=== PATIENT | female | born 1975 | race Caucasian/White ===

== ENCOUNTER 2021-05-19 11:38 | Day surgery (SDC) | payer MEDICAID ==
[2021-05-17 13:40] LABS: COVID AG,FIA SOURCE NASOPHARYNGEAL
[~2021-05-19] VITALS: Ht 158.8 cm; Wt 70.4 kg
[~2021-05-19 11:38] MED LIST: SODIUM CHLORIDE 0.9% 1,000 ML IV ONE; SODIUM CHLORIDE 0.9% 1,000 ML ONE
[2021-05-19] MEDS ORDERED: PROPOFOL 1% 20 ML VIAL IVP ONE (11:39)
[2021-05-19] MEDS ORDERED: LIDOCAINE/PF 2% 5 ML VIAL IM ONE (11:39)
== END 2021-05-19 15:55 | disposition home or self-care (01) ==
LOC: SURGERY 11:38
PROVIDERS: ATTEND Internal Medicine Gastroenterology
DX: R13.10 Dysphagia, unspecified (principal); K29.50 Unspecified chronic gastritis without bleeding; K44.9 Diaphragmatic hernia without obstruction or gangrene; I10 Essential (primary) hypertension; Z20.822 Contact with and (suspected) exposure to COVID-19; Z79.899 Other long term (current) drug therapy
CPT/HCPCS: 43239; 87426; 88305; 88313; 88342; C1769; C9803; J2704; J3490; J7030